=== PATIENT | female | born 1985 | race Caucasian/White ===

== ENCOUNTER 2017-06-14 01:59 | Emergency (ER) | payer SELFPAY ==
--- NOTE | 2017-06-14 02:22 | ER Document Report ---
ED General - General Chief Complaint: Flank Pain Stated Complaint: FLANK PAIN Time Seen by Provider: 06/14/17 02:16 Notes: Patient is a 31-year-old female with a past medical history of pyelonephritis, no chronic conditions, who presents with 1 week of dysuria and several hours of bilateral flank pain worse than the left. She states that for the past 1 week she has had intermittent dysuria which she was hoping would go away. She states that the symptoms have not resolved and tonight she woke up from sleep with severe bilateral flank pain that was described as a constant, stabbing, aching pain. Nothing improves or worsens the pain. She states this feels identical to when she had pyelonephritis in the past. She has not had any fever or constitutional symptoms. No vomiting or difficulty tolerating oral intake. She has not seen a primary care doctor regarding today's concerns. TRAVEL OUTSIDE OF THE [place] IN LAST 30 DAYS: No - Related Data Allergies/Adverse Reactions: amoxicillin Allergy (Verified 06/14/17 02:10) Penicillins Allergy (Verified 06/14/17 02:09) Past Medical History - General Information source: Patient - Social History Smoking Status: Current Some Day Smoker Frequency of alcohol use: Occasional Drug Abuse: None Lives with: Spouse/Significant other Family History: Reviewed & Not Pertinent Patient has suicidal ideation: No Patient has homicidal ideation: No Renal/ Medical History: Denies: Hx Peritoneal Dialysis Review of Systems - Review of Systems Notes: Constitutional: Negative for fever. HENT: Negative for sore throat. Eyes: Negative for visual changes. Cardiovascular: Negative for chest pain. Respiratory: Negative for shortness of breath. Gastrointestinal: Negative for abdominal pain, vomiting or diarrhea. Positive for bilateral flank pain Genitourinary: Positive for dysuria. Musculoskeletal: Negative for back pain. Skin: Negative for rash. Neurological: Negative for headaches, weakness or numbness. 10 point ROS negative except as marked above and in HPI. Physical Exam - Vital signs Vitals: Temp Pulse Resp BP Pulse Ox 97.8 F 92 20 132/91 H 99 06/14/17 02:05 06/14/17 02:05 06/14/17 02:05 06/14/17 02:05 06/14/17 02:05 Interpretation: Normal Notes: PHYSICAL EXAMINATION: GENERAL: Well-appearing, well-nourished and in no acute distress. HEAD: Atraumatic, normocephalic. EYES: Pupils equal round and reactive to light, extraocular movements intact, sclera anicteric, conjunctiva are normal. ENT: nares patent, oropharynx clear without exudates. Moderately dry mucous membranes. NECK: Normal range of motion, supple without lymphadenopathy LUNGS: Breath sounds clear to auscultation bilaterally and equal. No wheezes rales or rhonchi. HEART: Regular rate and rhythm without murmurs ABDOMEN: Soft, nontender, normoactive bowel sounds. No guarding, no rebound. No masses appreciated. Bilateral CVA tenderness slightly worse on the left versus the right. EXTREMITIES: Normal range of motion, no pitting or edema. No cyanosis. NEUROLOGICAL: No focal neurological deficits. Moves all extremities spontaneously and on command. PSYCH: Normal mood, normal affect. SKIN: Warm, Dry, normal turgor, no rashes or lesions noted. Course - Re-evaluation Re-evalutation: 06/14/17 03:18 Presentation is most consistent with acute pyelonephritis. Laboratories do demonstrate a large amount of white blood cells in the urine as well as bacteria. CVA tenderness is present on exam. I do not suspect an acute appendicitis, biliary pathology, pancreatitis, intra-abdominal abscess, or tubo- ovarian abscess based on history and examination. Although patient does have some blood in the urine this is also typical in the setting of pyelonephritis and she does not give a clinical history to suggest an acute nephrolithiasis. I do not believe any further imaging is indicated. Patient was given a dose of 1 g of ceftriaxone prior to discharge and is able to tolerate oral fluids without difficulty. Will be discharged home on 7 day course of cephalexin. A urine culture has been sent. At this time will discharge with return precautions and follow-up recommendations. Verbal discharge instructions given a the bedside and opportunity for questions given. Medication warnings reviewed. Patient is in agreement with this plan and has verbalized understanding of return precautions and the need for primary care follow-up in the next 24-72 hours. - Vital Signs Vital signs: Temp Pulse Resp BP Pulse Ox 97.8 F 92 20 132/91 H 99 06/14/17 02:05 06/14/17 02:05 06/14/17 02:05 06/14/17 02:05 06/14/17 02:05 - Laboratory Laboratory results interpreted by me: 06/14/17 02:45 Urine Protein >=500 H Urine Blood MODERATE H Urine Nitrite POSITIVE H Ur Leukocyte Esterase LARGE H Discharge - Discharge Clinical Impression: Pyelonephritis Condition: Good Disposition: HOME, SELF-CARE Additional Instructions: You have been diagnosed with a condition called pyelonephritis which is an infection involving your kidneys and bladder. You have been given a dose of antibiotics here in the emergency department to help begin to treat this infection. Your also being sent home on antibiotics. Please start taking these later on today when you fill the prescription. Complete the course even if you feel better. Please return if you have persistent vomiting, pass out, have worsening pain, become unable to tolerate fluids, or have any other symptoms that are concerning to you. Please follow-up with your primary care physician in the next 24-48 hours. Prescriptions: Cephalexin Monohydrate [Keflex 500 mg Capsule] 500 mg PO Q6H 7 Days capsule
[2017-06-14 03:10] LABS: APPEARANCE,URINE CLOUDY; BILIRUBIN,URINE NEGATIVE (NEGATIVE); GLUCOSE, URINE NEGATIVE (NEGATIVE); KETONES,URINE NEGATIVE (NEGATIVE); LEUKOCYTE ESTERASE,URINE LARGE (NEGATIVE); NITRITE,URINE POSITIVE (NEGATIVE); PROTEIN,URINE >=500 mg/dL (NEGATIVE); URINE SPECIFIC GRAVITY 1.013; UROBILINOGEN,URINE NEGATIVE mg/dL (<2.0)
[2017-06-14] MEDS ORDERED: LIDOCAINE 1% INJ-PF (10 MG/ML) 30 ML SDV INFIL ONE (03:18)
[2017-06-14] MEDS ORDERED: CEFTRIAXONE INJ 1000 MG VIAL IM ONE (03:18)
[2017-06-14] MEDS ORDERED: IBUPROFEN 600 MG TABLET PO ONE (03:21)
[2017-06-14] MEDS ORDERED: ACETAMINOPHEN 325 MG TABLET PO ONE (03:21)
[2017-06-14 04:06] VITALS: BP 119/79
== END 2017-06-14 04:00 | disposition home or self-care (01) ==
LOC: ER 01:59
DX: N12 Tubulo-interstitial nephritis, not specified as acute or chronic (principal); R10.9 Unspecified abdominal pain; F17.200 Nicotine dependence, unspecified, uncomplicated; Z88.0 Allergy status to penicillin
CPT/HCPCS: 99284; 87086; 81025; 87088; 81001; J3490; J0696; 87186

== ENCOUNTER 2017-10-06 12:47 | Emergency (ER) | payer SELFPAY ==
[2017-10-06] MEDS ORDERED: SULFAMETHOXAZOLE/TRIMETHOPRIM 800-160 MG TABLET PO ONE (15:00)
[2017-10-06] MEDS ORDERED: PHENAZOPYRIDINE HCL 100 MG TABLET PO ONE (15:00)
--- NOTE | 2017-10-06 15:02 | ER Document Report ---
HPI - HPI Patient complains to provider of: UTI Onset: Yesterday Onset/Duration: Gradual Quality of pain: Burning Pain Level: 2 Context: Patient presents complaining of urinary frequency with dysuria and nausea. Patient denies any fever or back pain. Patient complains of lower pelvic cramping. Patient denies any vaginal bleeding or discharge. Associated Symptoms: Nausea. denies: Fever, Vomiting Exacerbated by: Denies Relieved by: Denies Similar symptoms previously: Yes Recently seen / treated by doctor: No - ROS ROS below otherwise negative: Yes Systems Reviewed and Negative: Yes All other systems reviewed and negative - CONSTITUTIONAL Constitutional: DENIES: Fever - GASTROINTESTINAL Gastrointestinal: REPORTS: Abdominal Pain, Nausea. DENIES: Patient vomiting - URINARY Urinary: REPORTS: Dysuria, Urgency, Frequency - MUSCULOSKELETAL Musculoskeletal: DENIES: Back Pain - DERM Skin Color: Normal Skin Problems: None Past Medical History - General Information source: Patient - Social History Smoking Status: Never Smoker Chew tobacco use (# tins/day): No Frequency of alcohol use: Heavy Drug Abuse: None Occupation: Sales Lives with: Spouse/Significant other Family History: Reviewed & Not Pertinent Patient has suicidal ideation: No Patient has homicidal ideation: No - Medical History Medical History: Negative Renal/ Medical History: Denies: Hx Peritoneal Dialysis Past Surgical History: Reports: Hx Breast Surgery Vertical Provider Document - CONSTITUTIONAL Agree With Documented VS: Yes Exam Limitations: No Limitations General Appearance: WD/WN, No Apparent Distress - INFECTION CONTROL TRAVEL OUTSIDE OF THE [place] IN LAST 30 DAYS: No - HEENT HEENT: Atraumatic, Normocephalic - NECK Neck: Normal Inspection - RESPIRATORY Respiratory: Breath Sounds Normal, No Respiratory Distress O2 Sat by Pulse Oximetry: 99 - CARDIOVASCULAR Cardiovascular: Regular Rate, Regular Rhythm - GI/ABDOMEN Gastrointestinal: Abdomen Soft, Abdomen Tender - suprapubic, No Organomegaly, Normal Bowel Sounds - BACK Back: Normal Inspection. negative: CVA Tenderness-Right, CVA Tenderness-Left - MUSCULOSKELETAL/EXTREMETIES Musculoskeletal/Extremeties: YANG MARTINEZ - NEURO Level of Consciousness: Awake, Alert, Appropriate Motor/Sensory: No Motor Deficit - DERM Integumentary: Warm, Dry, No Rash Course - Vital Signs Vital signs: Temp Pulse Resp BP Pulse Ox 98.6 F 87 14 130/76 H 99 10/06/17 12:51 10/06/17 12:51 10/06/17 12:51 10/06/17 12:51 10/06/17 12:51 Discharge - Discharge Clinical Impression: UTI (urinary tract infection) Qualifiers: Urinary tract infection type: site unspecified Hematuria presence: without hematuria Qualified Code(s): N39.0 - Urinary tract infection, site not specified Condition: Stable Disposition: HOME, SELF-CARE Instructions: Trimethoprim-Sulfa ([facility]), Urinary Anesthetic Agent ([facility]), Urinary Tract Infection ([facility]) Additional Instructions: Return immediately for any new or worsening symptoms Followup with your primary care provider, call tomorrow to make a followup appointment Prescriptions: Phenazopyridine HCl [Pyridium 200 mg Tablet] 200 mg PO TID #15 tablet Sulfamethoxazole/Trimethoprim [Bactrim Ds Tablet] 1 each PO BID #14 tablet Referrals: [facility] [Provider Group] - Follow up as needed
[2017-10-06 15:38] VITALS: BP 123/73
== END 2017-10-06 15:38 | disposition home or self-care (01) ==
LOC: ER 12:47
DX: N39.0 Urinary tract infection, site not specified (principal)
CPT/HCPCS: 99283; 87086; 87088; 87186; J3490

== ENCOUNTER 2018-02-03 21:45 | Emergency (ER) | payer SELFPAY ==
--- NOTE | 2018-02-03 22:32 | ER Document Report ---
ED General - General Mode of Arrival: Ambulatory Information source: Patient TRAVEL OUTSIDE OF THE [place] IN LAST 30 DAYS: No <ARJUN YAÑEZ - Last Filed: 02/04/18 01:06> <ENOCH JONES - Last Filed: 02/04/18 01:35> - General Chief Complaint: Chest Pain Stated Complaint: CHEST PAIN Time Seen by Provider: 02/03/18 22:14 Notes: Patient is a 32 year old female with anxiety and asthma presents to the emergency department complaining of chest pain with associated symptoms of shortness of breath, and light headedness. Patient states she had chest pain yesterday with a cough and took her inhaler which relieved her symptoms. Patient states her chest pain gradually returned today and describes it has someone sitting on her chest. She states her inhaler has not helped with her symptoms today. Patient states she has never had similar symptoms. Patient denies a cardiac history. (ARJUN YAÑEZ) - Related Data Allergies/Adverse Reactions: amoxicillin Allergy (Verified 10/06/17 12:49) cefaclor [From Ceclor] Allergy (Verified 10/06/17 12:49) cephalexin [From Keflex] Allergy (Verified 10/06/17 12:49) latex Allergy (Verified 10/06/17 12:49) Penicillins Allergy (Verified 10/06/17 12:49) Past Medical History - General Information source: Patient - Social History Smoking Status: Former Smoker - States she occasionally vapes Chew tobacco use (# tins/day): No Frequency of alcohol use: Social Drug Abuse: None Family History: Reviewed & Not Pertinent Patient has suicidal ideation: No Patient has homicidal ideation: No Pulmonary Medical History: Reports: Hx Asthma - child Past Surgical History: Reports: Hx Breast Surgery <ARJUN YAÑEZ - Last Filed: 02/04/18 01:06> Review of Systems - Review of Systems Constitutional: No symptoms reported EENT: No symptoms reported Cardiovascular: See HPI, Chest pain, Lightheaded Respiratory: See HPI, Cough, Short of breath Gastrointestinal: No symptoms reported Genitourinary: No symptoms reported Female Genitourinary: No symptoms reported Musculoskeletal: No symptoms reported Skin: No symptoms reported Hematologic/Lymphatic: No symptoms reported Neurological/Psychological: No symptoms reported -: Yes All other systems reviewed and negative <ARJUN YAÑEZ - Last Filed: 02/04/18 01:06> Physical Exam - General General appearance: Alert, Anxious In distress: None - HEENT Head: Normocephalic, Atraumatic Eyes: Normal Conjunctiva: Normal Extraocular movements intact: Yes Pupils: PERRL Neck: Normal - Respiratory Respiratory status: No respiratory distress - Patient is 100% on room air at bedside. Chest status: Nontender Breath sounds: Normal Chest palpation: Normal - Cardiovascular Rhythm: Regular Heart sounds: Normal auscultation Murmur: No Friction rub: No Gallop: None auscultated - Abdominal Inspection: Normal Distension: No distension Tenderness: Nontender Organomegaly: No organomegaly - Back Back: Normal - Extremities General upper extremity: Normal ROM General lower extremity: Normal ROM - Neurological Neuro grossly intact: Yes Cognition: Normal Orientation: AAOx4 [place] Coma Scale Eye Opening: Spontaneous [place] Coma Scale Verbal: Oriented [place] Coma Scale Motor: Obeys Commands [place] Coma Scale Total: 15 Speech: Normal - Psychological Associated symptoms: Anxious - Skin Skin Temperature: Warm Skin Moisture: Dry Skin Color: Normal <ARJUN YAÑEZ - Last Filed: 02/04/18 01:06> - Vital signs Vitals: Temp Pulse Resp BP Pulse Ox 98.0 F 74 16 147/86 H 100 02/03/18 21:59 02/03/18 21:59 02/03/18 21:59 02/03/18 21:59 02/03/18 21:59 Course - Laboratory Result Diagrams: 02/03/18 22:37 02/03/18 22:37 <PARISHERINNHUNG - Last Filed: 02/04/18 01:06> - Laboratory Result Diagrams: 02/03/18 22:37 02/03/18 22:37 - Diagnostic Test Radiology reviewed: Image reviewed, Reports reviewed - Chest x-ray is unremarkable. - EKG Interpretation by Ma EKG shows normal: Sinus rhythm, [place], Intervals, QRS Complexes, ST-T Waves Rate: Normal - 84 Rhythm: NSR <ENOCH JONES - Last Filed: 02/04/18 01:35> - Re-evaluation Re-evalutation: 02/04/18 01:25 Room air pulse ox of 100%. The EKG is totally normal. Chest x-ray is totally normal. CBC, Chem-12, cardiac enzymes are completely normal. Patient does have a history of anxiety but is resistant to accepting that as an explanation for her symptoms of feeling like she cannot breathe. 02/04/18 01:31 All of the above findings are reviewed with the patient while her pulse is 85, her pulse ox is 100%. She continues to state that she feels like she is suffocating, cannot take a deep breath. Chest x-ray shows fully expanded lungs. She does not want to accept the fact that anxiety could be a big part of her sensation. She states her chest is burning when she breathes. She states she knows what anxiety feels like and she has not been anxious at all this week. She states she was given an inhaler for anxiety and it is not helping. I informed her that the inhalers for bronchospasm not for anxiety and that is why it is not helping because she does not have any bronchospasm. (ENOCH JONES) - Vital Signs Vital signs: Temp Pulse Resp BP Pulse Ox 98.0 F 74 18 130/80 H 100 02/03/18 21:59 02/03/18 21:59 02/04/18 01:03 02/04/18 01:03 02/04/18 01:03 Discharge <ARJUN YAÑEZ - Last Filed: 02/04/18 01:06> <ENOCH JONES - Last Filed: 02/04/18 01:35> - Discharge Clinical Impression: Anxiety Dyspnea Qualifiers: Dyspnea type: unspecified Qualified Code(s): R06.00 - Dyspnea, unspecified Chest pain Qualifiers: Chest pain type: unspecified Qualified Code(s): R07.9 - Chest pain, unspecified Condition: Stable Disposition: HOME, SELF-CARE Additional Instructions: Dyspnea, Nonspecific: You were evaluated for shortness of breath, or dyspnea. Dyspnea has many causes, and some are more serious than others. Sometimes it's impossible to diagnose the cause of dyspnea with the tests that are available on an emergency basis. Based on our evaluation today, you do not need hospitalization now. We found no evidence of pneumonia, collapsed lung, blood clots in the lung, tumors , or heart failure. Causes of non-specific dyspnea can include asthma or bronchospasm, hyperventilation, emotional distress, heart disease, emphysema, fibrosis of the lung, and stiffness of the chest wall. In healthy individuals with a single episode, it's sometimes reasonable to do nothing but wait to see if the problem occurs again. Additional tests used to evaluate dyspnea can include cardiac stress testing, echocardiography, pulmonary function testing, CAT scan of the chest, bronchoscopy or pulmonary biopsy. Return if shortness of breath persists or worsens, or if you develop chest pain, fever, cough, confusion, or fainting. Chest Pain of Unclear Cause: The exact cause of your chest pain isn't clear. Fortunately, there is no evidence of a dangerous medical condition. Further testing may be required to find the source of the pain. Most often, we find that this pain is coming from the chest wall -- the muscles or rib joints in the chest. But chest pain can come from the lung and lung lining, the esophagus, the heart valves or heart lining, and even the stomach or gallbladder. Rest. Eat lightly until the pain is gone. We may prescribe medicine for pain and inflammation. You should call the physician immediately if the pain radiates to the shoulder, jaw or arms; if you start to run a fever or develop a cough; or if you develop shortness of breath, or other new or alarming symptoms. No clear explanation was found for your symptoms of chest pressure, burning in your chest on breathing, and the sensation of not being able to get a good breath or suffocating. Chest x-ray showed fully inflating lungs with no abnormalities. Your oxygen saturation is 100% on room air. Your lab work was entirely normal as was the EKG. You are being discharged home with some pain medication to try tonight to help you rest and be able to sleep. If her symptoms persist, you should follow-up with a local primary care provider for further evaluation. RETURN TO THE EMERGENCY ROOM IF ANY NEW OR WORSENING SYMPTOMS. Scribe Attestation: 02/03/18 23:07 I personally performed the services described in the documentation, reviewed and edited the documentation which was dictated to the scribe in my presence, and it accurately records my words and actions. (ENOCH JONES) Scribe Documentation - Scribe Written by Chetan:: Chetan Martin, 02/03/2018 22:40 acting as scribe for :: Sharmin <ARJUN YAÑEZ - Last Filed: 02/04/18 01:06>
[2018-02-03 22:54] LABS: ABSOLUTE BASOPHILS # (AUTO) 0.1 10^3/uL (0.0-0.2); ABSOLUTE EOSINOPHILS # (AUTO) 0.3 10^3/uL (0.0-0.6); ABSOLUTE MONOCYTES (AUTO) 0.6 10^3/uL (0.1-1.4); ABSOLUTE NEUT (AUTO) 3.8 10^3/uL (1.7-8.2); BASOPHILS % (AUTO) 1.3 % (0-2); EOSINOPHILS % (AUTO) 3.6 % (0-6); HEMATOCRIT 36.2 % (36.0-47.0); HEMOGLOBIN 12.6 g/dL (12.0-15.5); LYMPHOCYTES % (AUTO) 38.3 % (13-45); MEAN CORPUSCULAR HEMOGLOBIN 33.1 pg (27.0-33.4); MEAN CORPUSCULAR HGB CONC 34.8 g/dL (32.0-36.0); MEAN CORPUSCULAR VOLUME 95 fl (80-97); MONOCYTES % (AUTO) 8.1 % (3-13); PLATELET COUNT 288 10^3/uL (150-450); RED BLOOD COUNT 3.81 10^6/uL (3.72-5.28); RED CELL DISTRIBUTION WIDTH 12.8 % (11.5-14.0); SEGMENTED NEUTROPHILS % (AUTO) 48.7 % (42-78); TOTAL CELLS COUNTED % (AUTO) 100 %; WHITE BLOOD COUNT 7.8 10^3/uL (4.0-10.5)
--- NOTE | 2018-02-03 22:54 | EKG REPORT ---
SEVERITY:- NORMAL ECG - SINUS RHYTHM : Confirmed by: Neelima Jones 03-Feb-2018 22:53:37
[2018-02-03 23:10] LABS: ALANINE AMINOTRANSFERASE 25 U/L (9-52); ALBUMIN 4.5 g/dL (3.5-5.0); ALKALINE PHOSPHATASE 88 U/L (38-126); ANION GAP 13 (5-19); ASPARTATE AMINO TRANSFERASE 20 U/L (14-36); BILIRUBIN,DIRECT 0.3 mg/dL (0.0-0.4); BILIRUBIN,TOTAL 0.4 mg/dL (0.2-1.3); BLOOD UREA NITROGEN 11 mg/dL (7-20); CALCIUM 10.1 mg/dL (8.4-10.2); CARBON DIOXIDE 25 mmol/L (22-30); CHLORIDE 104 mmol/L (98-107); CREATINE KINASE 64 U/L (30-135); GLUCOSE 85 mg/dL (75-110); POTASSIUM 3.8 mmol/L (3.6-5.0); SODIUM 141.5 mmol/L (137-145); TOTAL PROTEIN 7.1 g/dL (6.3-8.2)
[2018-02-04 01:09] VITALS: BP 130/80
--- NOTE | 2018-02-04 01:10 | RADIOLOGY REPORT (SQ) ---
EXAM DESCRIPTION: XR CHEST 2 VIEWS COMPLETED DATE/TME: 02/04/2018 00:11 CLINICAL HISTORY: 32 years Female, Chest pain COMPARISON: None. FINDINGS: Adequate lung volume, clear parenchyma, normal cardiac silhouette, mammary prostheses, and intact bony thorax. IMPRESSION: No acute cardiopulmonary findings.
[2018-02-04] MEDS ORDERED: HYDROCODONE/ACETAMINOPHEN 5-325 MG (6 TAB/ER DISP) PO PRN (01:35)
== END 2018-02-04 01:53 | disposition home or self-care (01) ==
LOC: ER 21:45
DX: F41.9 Anxiety disorder, unspecified (principal); R06.00 Dyspnea, unspecified; R07.9 Chest pain, unspecified; R42 Dizziness and giddiness; R05 Cough; Z87.891 Personal history of nicotine dependence; J45.909 Unspecified asthma, uncomplicated
CPT/HCPCS: 36415; 71046; 80053; 82550; 84484; 85025; 93005; 93010; 99285

== ENCOUNTER 2019-01-15 04:50 | Emergency (ER) | payer BC ==
--- NOTE | 2019-01-15 05:25 | RADIOLOGY REPORT (SQ) ---
EXAM: X-ray two views two or more views CLINICAL DATA: 33-year-old female who tripped and fell on a rock and complains of right toe pain TECHNICAL DATA: Two x-ray views of the right toes were performed on 01/15/2019 at 5:12 AM. COMPARISONS: None FINDINGS: There is a mildly displaced oblique fracture through the distal third of the proximal phalanx of the fourth digit of the right foot. No definite additional fractures are identified. There is no evidence of arthritis or significant degenerative change. Bone mineralization is normal. There is mild soft tissue swelling surrounding the fourth digit of the right foot. IMPRESSION: Mildly displaced oblique fracture through the distal third of the proximal phalanx of the fourth digit of the right foot. Intra-articular extension is not confirmed on this study.
[2019-01-15] MEDS ORDERED: IBUPROFEN 600 MG TABLET PO ONE (08:27)
[2019-01-15] MEDS ORDERED: HYDROCODONE/ACETAMINOPHEN 5-325 MG (6 TAB/ER DISP) PO PRN (09:01)
--- NOTE | 2019-01-15 09:04 | ER Document Report ---
HPI - HPI Patient complains to provider of: R foot pain Time Seen by Provider: 01/15/19 08:24 Pain Level: 3 Context: Healthy 33-year-old female presents to the emergency department chief complaint of left foot pain after slipping and falling yesterday evening. She states that she was unable to bear weight on it but did not think it was necessary to seek treatment. In the middle the night she developed acute pain which woke her up and she could not tolerate the pain anymore prompting her to seek treatment in the emergency department. She denies fevers, chills, nausea, vomiting, knee pain or hip pain, discoloration of the foot, swelling of the foot, or any other concerning symptoms. - EENT EENT: DENIES: Sore Throat, Ear Pain, Eye problems - NEURO Neurology: DENIES: Headache, Weakness, Vision blurred, Dizzinesss / Vertigo - CARDIOVASCULAR Cardiovascular: DENIES: Chest pain - RESPIRATORY Respiratory: DENIES: Trouble Breathing, Coughing - GASTROINTESTINAL Gastrointestinal: DENIES: Abdominal Pain, Black / Bloody Stools - URINARY Urinary: DENIES: Dysuria, Urgency, Frequency - REPRODUCTIVE Reproductive: DENIES: :, Postmenopausal, Abnormal bleeding / discharge - MUSCULOSKELETAL Musculoskeletal: REPORTS: Extremity pain - Toes Past Medical History - Social History Smoking Status: Unknown if Ever Smoked Family History: Reviewed & Not Pertinent Patient has suicidal ideation: No Patient has homicidal ideation: No Pulmonary Medical History: Reports: Hx Asthma - child Renal/ Medical History: Denies: Hx Peritoneal Dialysis Past Surgical History: Reports: Hx Breast Surgery Vertical Provider Document - CONSTITUTIONAL Notes: PHYSICAL EXAMINATION: Reviewed vital signs and charting by RN GENERAL: Alert, interacts well. No acute distress. HEAD: Normocephalic, atraumatic. EYES: Pupils equal, round, and reactive to light. Extraocular movements intact. ENT: Oral mucosa moist, tongue midline. NECK: Full range of motion. Supple. Trachea midline. LUNGS: Clear to auscultation bilaterally, no wheezes, rales, or rhonchi. No resp iratory distress. HEART: Regular rate and rhythm. No murmur ABDOMEN: soft, non-tender. No distention. Bowel sounds present EXTREMITIES: Moves all 4 extremities spontaneously. No edema, No cyanosis. Acute tenderness to palpation of the right fourth toe. PSYCH: Normal affect, normal mood. SKIN: Warm, dry, normal turgor. No rashes or lesions noted. - INFECTION CONTROL TRAVEL OUTSIDE OF THE [place] IN LAST 30 DAYS: No Course - Re-evaluation Re-evalutation: 01/15/19 15:15 X-ray shows evidence of a mildly displaced oblique fracture of the fourth phalanx of the right foot. Plan is to milton tape and placed in a postop shoe. Patient is stable for discharge. - Vital Signs Vital signs: Temp Pulse Resp BP Pulse Ox 98.1 F 90 16 118/88 H 99 01/15/19 04:55 01/15/19 04:55 01/15/19 04:55 01/15/19 04:55 01/15/19 04:55 Discharge - Discharge Clinical Impression: Phalanx fracture, foot Qualifiers: Encounter type: initial encounter Toe: lesser toe Fracture type: closed Phalanx: proximal Fracture alignment: nondisplaced Laterality: right Qualified Code(s): S92.514A - Nondisplaced fracture of proximal phalanx of right lesser toe(s), initial encounter for closed fracture Condition: Good Disposition: HOME, SELF-CARE Additional Instructions: You are seen emergency department this morning for a broken toe. It was mildly displaced but not enough that we will require orthopedic intervention. We have provided you with a postop shoe and milton tape and given you crutches. You can take Motrin 600 mg every 6 hours and/or Tylenol 1000 mg every 6 hours for pain control. Given you a very short course of pain medication he can take for better while you are sleeping. It should heal without any issues on its own. If you continue to have severe pain over the next 1 to 2 weeks please follow-up for reevaluation. If your toes starts to turn purple or black please return to the emergency department for reevaluation.
[2019-01-15 10:17] VITALS: BP 123/80
== END 2019-01-15 09:10 | disposition home or self-care (01) ==
LOC: ER 04:50
DX: S92.514A Nondisplaced fracture of proximal phalanx of right lesser toe(s), initial encounter for closed fracture (principal); W01.0XXA Fall on same level from slipping, tripping and stumbling without subsequent striking against object, initial encounter
CPT/HCPCS: 99283

== ENCOUNTER 2019-05-05 20:03 | Emergency (ER) | payer BC ==
--- NOTE | 2019-05-05 20:35 | ER Document Report ---
ED Medical Screen (RME) - General Chief Complaint: Fever Stated Complaint: FEVER Time Seen by Provider: 05/05/19 20:24 Mode of Arrival: Ambulatory Information source: Patient Notes: This 33-year-old female presents emergency department with complaints of fevers all month. Reports her temperature goes up to 104.5. She takes Tylenol Motrin and the temperature comes down. She reports fever for the past month. She was evaluated at urgent care her strep test was negative. She was treated with a Z- Scar still had the fevers treated with clindamycin for 10 days. She reports fever went away for approximately 1 week and then returned. Last fever was approximately 4 hours ago. Complains of swollen lymph nodes on the right side of her neck which are worse. Denies rash. 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 Reports her throat feels fine now she is swallowing without problems. Complains of very tender right-sided neck pain. I have greeted and performed a rapid initial assessment of this patient. A comprehensive ED assessment and evaluation of the patient, analysis of test results and completion of the medical decision making process will be conducted by additional ED providers. Dictation of this chart was performed using voice recognition software; therefore, there may be some unintended grammatical errors. TRAVEL OUTSIDE OF THE [place] IN LAST 30 DAYS: No - Related Data Allergies/Adverse Reactions: amoxicillin Allergy (Verified 10/06/17 12:49) cefaclor [From Ceclor] Allergy (Verified 10/06/17 12:49) cephalexin [From Keflex] Allergy (Verified 10/06/17 12:49) latex Allergy (Verified 10/06/17 12:49) Penicillins Allergy (Verified 10/06/17 12:49) Past Medical History Pulmonary Medical History: Reports: Hx Asthma - child Renal/ Medical History: Denies: Hx Peritoneal Dialysis Past Surgical History: Reports: Hx Breast Surgery Physical Exam - Vital signs Vitals: Temp Pulse Resp BP Pulse Ox 99.5 F 117 H 17 113/68 95 05/05/19 20:10 05/05/19 20:10 05/05/19 20:10 05/05/19 20:10 05/05/19 20:10 Course - Vital Signs Vital signs: Temp Pulse Resp BP Pulse Ox 99.5 F 117 H 17 113/68 95 05/05/19 20:10 05/05/19 20:10 05/05/19 20:10 05/05/19 20:10 05/05/19 20:10
[2019-05-05 20:59] LABS: ABSOLUTE LYMPHOCYTES (AUTO) 1.5 10^3/uL (0.5-4.7); ABSOLUTE MONOCYTES (AUTO) 0.7 10^3/uL (0.1-1.4); BASOPHILS % (AUTO) 0.2 % (0-2); EOSINOPHILS % (AUTO) 0.2 % (0-6); HEMATOCRIT 35.4 % (36.0-47.0); MEAN CORPUSCULAR HEMOGLOBIN 30.7 pg (27.0-33.4); MEAN CORPUSCULAR HGB CONC 33.8 g/dL (32.0-36.0); MEAN CORPUSCULAR VOLUME 91 fl (80-97); MONOCYTES % (AUTO) 4.9 % (3-13); PLATELET COUNT 281 10^3/uL (150-450); RED CELL DISTRIBUTION WIDTH 14.9 % (11.5-14.0); SEGMENTED NEUTROPHILS % (AUTO) 84.7 % (42-78); TOTAL CELLS COUNTED % (AUTO) 100 %; WHITE BLOOD COUNT 15.4 10^3/uL (4.0-10.5)
[2019-05-05 21:01] LABS: APPEARANCE,URINE SLIGHTLY-CLOUDY; BILIRUBIN,URINE NEGATIVE (NEGATIVE); COLOR,URINE YELLOW; GLUCOSE, URINE NEGATIVE (NEGATIVE); KETONES,URINE NEGATIVE (NEGATIVE); LEUKOCYTE ESTERASE,URINE SMALL (NEGATIVE); NITRITE,URINE NEGATIVE (NEGATIVE); PROTEIN,URINE 100 mg/dL (NEGATIVE); URINE SPECIFIC GRAVITY 1.026; UROBILINOGEN,URINE NEGATIVE mg/dL (<2.0)
[2019-05-05 21:09] LABS: ALBUMIN 4.1 g/dL (3.5-5.0); ALKALINE PHOSPHATASE 124 U/L (38-126); ANION GAP 11 (5-19); ASPARTATE AMINO TRANSFERASE 17 U/L (14-36); BILIRUBIN,DIRECT 0.2 mg/dL (0.0-0.4); BILIRUBIN,TOTAL 0.4 mg/dL (0.2-1.3); BLOOD UREA NITROGEN 10 mg/dL (7-20); CALCIUM 9.5 mg/dL (8.4-10.2); CARBON DIOXIDE 23 mmol/L (22-30); CHLORIDE 103 mmol/L (98-107); GLUCOSE 121 mg/dL (75-110); POTASSIUM 3.5 mmol/L (3.6-5.0); TOTAL PROTEIN 7.3 g/dL (6.3-8.2)
--- NOTE | 2019-05-05 23:10 | RADIOLOGY REPORT (SQ) ---
EXAM DESCRIPTION: CT NECK WITH IV CONTRAST COMPLETED DATE/TME: 05/05/2019 20:31 CLINICAL HISTORY: 33 years, Female, swollen lymph node pain fever COMPARISON: None. TECHNIQUE: Contrast enhanced CT of the neck was performed. Coronal and sagittal reformations were created. Images stored on PACS. All CT scanners at this facility use dose modulation, iterative reconstruction, and/or weight based dosing when appropriate to reduce radiation dose to as low as reasonably achievable (ALARA). [facility]: Dose Right [facility]: CareDose [facility]: Dose Right [facility]: Teradose 4D [facility]: [employer] LIMITATIONS: None. FINDINGS: Limited evaluation of the lung apices reveals no suspicious abnormality. Thyroid gland enhances symmetrically. The hypopharynx and nasopharynx show no suspicious abnormality. Assessment of the oropharynx reveals diffuse heterogenous enlargement of the bilateral palatine tonsils. No focal fluid collections are identified about either [place] tonsil however. Limited evaluation of the brain parenchyma reveals no suspicious findings. Visualized intracranial arterial vasculature appears opacify with contrast normally. Major dural venous sinuses also appear to opacify with contrast normally. Globes and orbits show no acute abnormality. Paranasal sinuses and mastoid air cells are clear. The nasal septum is deviated towards the left with a rightward nasal spur. The bilateral parotid and submandibular glands appear normal. Vascular structures of the neck appear to enhance normally. Interval enlarged bilateral level IIa and IIb lymph nodes are evident. For example, there is an enlarged right level IIa lymph node on image 53 of series 2 measuring 1.7 x 1.4 cm in size. Similar finding is noted just anterior to this larger lymph node measuring 1.5 x 1.8 cm in size on the same image. In addition, there is an enlarged left level IIa/IIb lymph node conglomeration on image 54 of series 2 measuring approximately 4.4 x 1.5 cm in size. There is also an enlarged left level IV lymph node on image 86 of series 2 measuring 1.6 x 1.1 cm in size. An additional enlarged right level III lymph node is evident on image 73 of series 2 measuring 1.1 x 1.3 cm in size. Cervical vertebral body heights and alignments appear overall well-maintained. Intervertebral spaces are also well maintained. IMPRESSION: Enlarged/heterogeneously enhancing bilateral palatine tonsils with superimposed deep cervical lymphadenopathy. Overall, these findings could indicate tonsillitis with associated reactive lymphadenopathy. However, the degree of conglomerate lymphadenopathy about the left level IIa/IIb regions is concerning. As such, an underlying malignancy/lymphoma needs to be excluded. TECHNICAL DOCUMENTATION: Quality ID # 436: Final reports with documentation of one or more dose reduction techniques (e.g., Automated exposure control, adjustment of the mA and/or kV according to patient size, use of iterative reconstruction technique) copyright 2011 [employer]- All Rights Reserved
[2019-05-06] MEDS ORDERED: ACETAMINOPHEN 325 MG TABLET PO ONE (00:20)
[2019-05-06] MEDS ORDERED: NORMAL SALINE 1000 ML 1,000 ML IV ONE (00:38)
--- NOTE | 2019-05-06 02:27 | ER Document Report ---
ED Fever - General Chief Complaint: Fever Stated Complaint: FEVER Time Seen by Provider: 05/05/19 20:24 Mode of Arrival: Ambulatory Notes: RME NOTE: This 33-year-old female presents emergency department with complaints of fevers all month. Reports her temperature goes up to 104.5. She takes Tylenol Motrin and the temperature comes down. She reports fever for the past month. She was evaluated at urgent care her strep test was negative. She was treated with a Z- Scar still had the fevers treated with clindamycin for 10 days. She reports fever went away for approximately 1 week and then returned. Last fever was approximately 4 hours ago. Complains of swollen lymph nodes on the right side of her neck which are worse. Denies rash. 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 Reports her throat feels fine now she is swallowing without problems. Complains of very tender right-sided neck pain. MY HPI: Patient does relate that she has had an intermittent fever for the last month. States last string of fevers had lasted for the last 4 days, to include today. Patient is denying URI symptoms, denies sore throat, denies dysuria, denies chest pain, abdominal pain, vaginal discharge. Patient's complaining of generalized swelling to the right side of her neck. Patient has full range of motion of neck, no nuchal rigidity noted. Patient does voice she has had swelling of her neck intermittently for the last month. States when she was placed on clindamycin for suspected strep infection the swelling "completely went away." Patient's denying any rashes, denies being outside for extended periods. Patient voices that she typically goes from her house straight to work. Patient is denying any headaches or general malaise. Patient's only complaining of her cervical lymphadenopathy. Patient's denying any joint or muscle pains. TRAVEL OUTSIDE OF THE [place] IN LAST 30 DAYS: No - Related Data Allergies/Adverse Reactions: amoxicillin Allergy (Verified 10/06/17 12:49) cefaclor [From Ceclor] Allergy (Verified 10/06/17 12:49) cephalexin [From Keflex] Allergy (Verified 10/06/17 12:49) latex Allergy (Verified 10/06/17 12:49) Penicillins Allergy (Verified 10/06/17 12:49) Past Medical History - General Information source: Patient - Social History Smoking Status: Never Smoker Family History: Reviewed & Not Pertinent Patient has suicidal ideation: No Patient has homicidal ideation: No Pulmonary Medical History: Reports: Hx Asthma - child Renal/ Medical History: Denies: Hx Peritoneal Dialysis Past Surgical History: Reports: Hx Breast Surgery Review of Systems - Review of Systems Constitutional: Fever EENT: See HPI Cardiovascular: No symptoms reported Respiratory: No symptoms reported Gastrointestinal: No symptoms reported Genitourinary: No symptoms reported Female Genitourinary: No symptoms reported Musculoskeletal: See HPI Skin: No symptoms reported Hematologic/Lymphatic: No symptoms reported Neurological/Psychological: No symptoms reported Physical Exam - Vital signs Vitals: Temp Pulse Resp BP Pulse Ox 99.5 F 117 H 17 113/68 95 05/05/19 20:10 05/05/19 20:10 05/05/19 20:10 05/05/19 20:10 05/05/19 20:10 - Notes Notes: GENERAL: Alert, interacts well. No acute distress. HEAD: Normocephalic, atraumatic. EYES: Pupils equal, round, and reactive to light. Extraocular movements intact. ENT: Oral mucosa moist, tongue midline. Nares patent, TM's intact, nonerythematous, nonbulging bilaterally. Pharynx within normal limits no palatal petechiae noted NECK: Full range of motion. Supple. Trachea midline. No nuchal rigidity noted. Anterior cervical lymphadenopathy noted bilaterally LUNGS: Clear to auscultation bilaterally, no wheezes, rales, or rhonchi. No respiratory distress. HEART: Regular rate and rhythm. No murmur ABDOMEN: Soft, non-tender. Non-distended. Bowel sounds present in all 4 quadr ants. EXTREMITIES: Moves all 4 extremities spontaneously. No edema, normal radial and dorsalis pedis pulses bilaterally. No cyanosis. BACK: no cervical, thoracic, lumbar midline tenderness. No saddle anesthesia, normal distal neurovascular exam. NEUROLOGICAL: Alert and oriented x3. Normal speech. cranial nerves II through XII grossly intact. PSYCH: Normal affect, normal mood. SKIN: Warm, dry, normal turgor. No rashes or lesions noted. Course - Re-evaluation Re-evalutation: 05/06/19 02:25 Laboratory 05/05/19 05/05/19 05/05/19 20:45 20:45 20:45 WBC 15.4 H RBC 3.90 Hgb 12.0 Hct 35.4 L MCV 91 MCH 30.7 MCHC 33.8 RDW 14.9 H Plt Count 281 Lymph % (Auto) 10.0 L [place] % (Auto) 4.9 Eos % (Auto) 0.2 Baso % (Auto) 0.2 Absolute Neuts (auto) 13.0 H Absolute Lymphs (auto) 1.5 Absolute Monos (auto) 0.7 Absolute Eos (auto) 0.0 Absolute Basos (auto) 0.0 Seg Neutrophils % 84.7 H Sodium 136.8 L Potassium 3.5 L Chloride 103 Carbon Dioxide 23 Anion Gap 11 BUN 10 Creatinine 0.70 Est GFR ( Amer) > 60 Est GFR (MDRD) Non-Af > 60 Glucose 121 H Calcium 9.5 Total Bilirubin 0.4 Direct Bilirubin 0.2 Neonat Total Bilirubin Not Reportable Neonat Direct Bilirubin Not Reportable Neonat Indirect Bili Not Reportable AST 17 ALT 12 Alkaline Phosphatase 124 Total Protein 7.3 Albumin 4.1 Urine Color YELLOW Urine Appearance SLIGHTLY-CLOUDY Urine pH 5.0 Ur Specific [place] 1.026 Urine Protein 100 H Urine Glucose (UA) NEGATIVE Urine Ketones NEGATIVE Urine Blood NEGATIVE Urine Nitrite NEGATIVE Urine Bilirubin NEGATIVE Urine Urobilinogen NEGATIVE Ur Leukocyte Esterase SMALL H Urine WBC (Auto) 10 Urine RBC (Auto) 5 U Hyaline Cast (Auto) 4 Urine Bacteria (Auto) TRACE Squamous Epi Cells Auto 2 Urine Mucus (Auto) FEW Urine Ascorbic Acid 40 H Urine HCG, Qual NEGATIVE Monotest Group A Strep Rapid 05/05/19 05/05/19 20:45 20:45 WBC RBC Hgb Hct MCV MCH MCHC RDW Plt Count Lymph % (Auto) [place] % (Auto) Eos % (Auto) Baso % (Auto) Absolute Neuts (auto) Absolute Lymphs (auto) Absolute Monos (auto) Absolute Eos (auto) Absolute Basos (auto) Seg Neutrophils % Sodium Potassium Chloride Carbon Dioxide Anion Gap BUN Creatinine Est GFR ( Amer) Est GFR (MDRD) Non-Af Glucose Calcium Total Bilirubin Direct Bilirubin Neonat Total Bilirubin Neonat Direct Bilirubin Neonat Indirect Bili AST ALT Alkaline Phosphatase Total Protein Albumin Urine Color Urine Appearance Urine pH Ur Specific [place] Urine Protein Urine Glucose (UA) Urine Ketones Urine Blood Urine Nitrite Urine Bilirubin Urine Urobilinogen Ur Leukocyte Esterase Urine WBC (Auto) Urine RBC (Auto) U Hyaline Cast (Auto) Urine Bacteria (Auto) Squamous Epi Cells Auto Urine Mucus (Auto) Urine Ascorbic Acid Urine HCG, Qual Monotest NEGATIVE Group A Strep Rapid NEGATIVE Soft Tissue Neck CT 05/05/19 20:31 IMPRESSION: Enlarged/heterogeneously enhancing bilateral palatine tonsils with superimposed deep cervical lymphadenopathy. Overall, these findings could indicate tonsillitis with associated reactive lymphadenopathy. However, the degree of conglomerate lymphadenopathy about the left level IIa/IIb regions is concerning. As such, an underlying malignancy/lymphoma needs to be excluded. TECHNICAL DOCUMENTATION: Quality ID # 436: Final reports with documentation of one or more dose reduction techniques (e.g., Automated exposure control, adjustment of the mA and/or kV according to patient size, use of iterative reconstruction technique) copyright 2011 [employer]- All Rights Reserved I discussed with patient at length her CT imaging results. I have discussed following up with oncology, phone numbers provided in the emergency department. I discussed prophylactic treatment for [place] spotted fever. Patient v oices she does not want prophylactic treatment as she goes straight from inside straight to work. Patient voices she does not typically outside for any extended period of time. [place] spotted fever testing pending. Patient did have a fever in the emergency department, treated with antipyretics, fever responded. Steroids administered to decrease patient's lymphadenopathy. Blood cultures ordered. Patient is refusing influenza testing at this time. She states "I do not care if it is the flu at this point." Discussed with patient again close follow-up with a primary care provider, phone numbers provided as well as oncology, phone numbers provided. Patient voices understanding. Stable for discharge. - Vital Signs Vital signs: Temp Pulse Resp BP Pulse Ox 101.7 F H 117 H 17 113/68 95 05/06/19 00:17 05/05/19 20:10 05/05/19 20:10 05/05/19 20:10 05/05/19 20:10 - Laboratory Result Diagrams: 05/05/19 20:45 05/05/19 20:45 Laboratory results interpreted by me: 05/05/19 05/05/19 05/05/19 20:45 20:45 20:45 WBC 15.4 H Hct 35.4 L RDW 14.9 H Lymph % (Auto) 10.0 L Absolute Neuts (auto) 13.0 H Seg Neutrophils % 84.7 H Sodium 136.8 L Potassium 3.5 L Glucose 121 H Urine Protein 100 H Ur Leukocyte Esterase SMALL H Urine Ascorbic Acid 40 H Discharge - Discharge Clinical Impression: Lymphadenopathy of right cervical region Fever Qualifiers: Fever type: unspecified Qualified Code(s): R50.9 - Fever, unspecified Condition: Stable Disposition: HOME, SELF-CARE Instructions: Fever ([facility]), Lymphadenopathy ([facility]) Additional Instructions: As we discussed at length you have been seen and treated in the emergency department for your fever and lymphadenopathy. It is my suggestion you follow- up with a primary care provider and oncologist. Phone numbers for both will be provided in this packet. Please also continue to take Tylenol or Motrin for generalized fevers as well as staying well-hydrated. Please return to the emergency room for any further concerns. Forms: Return to Work Referrals: PRAKASH JACOBSON MD [ACTIVE STAFF] - Follow up as needed DEBBI GONZALEZ MD [COMMUNITY BASED STAFF] - Follow up as needed
[2019-05-06] MEDS ORDERED: DEXAMETHASONE 4 MG TABLET PO ONE (02:30)
[2019-05-06 03:03] VITALS: BP 128/74
== END 2019-05-06 03:02 | disposition home or self-care (01) ==
LOC: ER 20:03
DX: R59.0 Localized enlarged lymph nodes (principal); R50.9 Fever, unspecified; M54.2 Cervicalgia; R22.1 Localized swelling, mass and lump, neck; J45.909 Unspecified asthma, uncomplicated
CPT/HCPCS: 36415; 87040; 87070; 87086; 87880; 85025; 81025; 87088; 86308; 80053; 81001; 86757 ×2; 70491; J7030; 87186; 96360; 99284

== ENCOUNTER → 2019-06-13 | Outpatient (CLI) | payer BC ==
--- NOTE | 2019-06-13 13:32 | RADIOLOGY REPORT (SQ) ---
EXAM DESCRIPTION: CT CHEST WITH COMPLETED DATE/TIME: 06/13/2019 1:11 pm REASON FOR STUDY: R59.9 ENLARGED LYMPH NODES, UNSPECIFIED R59.9 ENLARGED LYMPH NODES, UNSPECIFIED COMPARISON: None. TECHNIQUE: CT scan of the chest performed using helical scanning technique with dynamic intravenous contrast injection. Images reviewed with lung, soft tissue and bone windows. Reconstructed coronal and sagittal MPR and MIP images reviewed. All images stored on PACS. All CT scanners at this facility use dose modulation, iterative reconstruction, and/or weight based d osing when appropriate to reduce radiation dose to as low as reasonably achievable (ALARA). [facility]: Dose Right [facility]: CareDose [facility]: Dose Right [facility]: Teradose 4D [facility]: [employer] CONTRAST TYPE AND DOSE: 67 mL Omnipaque 350- low osmolar. RENAL FUNCTION: None required. The patient is less than 50 years old. RADIATION DOSE: CT Rad equipment meets quality standard of care and radiation dose reduction techniq ues were employed. CTDIvol: 4.5 - 4.6 mGy. DLP: 844 mGy-cm. . LIMITATIONS: None. FINDINGS: LUNGS AND PLEURA: No opacities, nodules, masses. No pneumothorax. No effusions. HILAR AND MEDIASTINAL STRUCTURES: No identified masses or abnormal nodes. HEART AND VASCULAR STRUCTURES: No aneurysm or dissection. No central pulmonary emboli. No pericardi al effusion. HARDWARE: None in the chest. UPPER ABDOMEN: No significant findings. Limited exam. THYROID AND OTHER SOFT TISSUES: No masses. No adenopathy. BONES: No significant finding. OTHER: No axillary adenopathy. IMPRESSION: NORMAL CT OF THE CHEST WITH IV CONTRAST. TECHNICAL DOCUMENTATION: JOB ID: [id number] Quality ID # 436: Final reports with documentation of one or more dose reduction techniques (e.g., Au tomated exposure control, adjustment of the mA and/or kV according to patient size, use of iterative reconstruction technique) 2010 [employer]- All Rights Reserved Reading location - IP/workstation name: [email or web address]
--- NOTE | 2019-06-13 13:43 | RADIOLOGY REPORT (SQ) ---
EXAM DESCRIPTION: CT ABD/PELVIS WITH IV ORAL COMPLETED DATE/TIME: 06/13/2019 1:11 pm REASON FOR STUDY: R59.9 ENLARGED LYMPH NODES, UNSPECIFIED R59.9 ENLARGED LYMPH NODES, UNSPECIFIED COMPARISON: None. TECHNIQUE: CT scan of the abdomen and pelvis performed using helical scanning technique with dynamic intravenous contrast injection. Oral contrast. Images reviewed with lung, soft tissue, and bone win dows. Reconstructed coronal and sagittal MPR images reviewed. Delayed images for evaluation of the ur inary system also acquired. All images stored on PACS. All CT scanners at this facility use dose modulation, iterative reconstruction, and/or weight based d osing when appropriate to reduce radiation dose to as low as reasonably achievable (ALARA). [facility]: Dose Right [facility]: CareDose [facility]: Dose Right [facility]: Teradose 4D [facility]: [employer] CONTRAST TYPE AND DOSE: contrast/concentration: Isovue 350.00 mg/ml; Total Contrast Delivered: 67.0 ml; Total Saline Delivered: 65.0 ml RENAL FUNCTION: Creatinine 0.6 RADIATION DOSE: . LIMITATIONS: None. FINDINGS: LOWER CHEST: See separate report of the CT of the chest. LIVER: Normal size. No masses. No dilated ducts. SPLEEN: Normal size. No focal lesions. PANCREAS: No masses. No significant calcifications. No adjacent inflammation or peripancreatic fluid collections. Pancreatic duct not dilated. GALLBLADDER: Contracted. No gallstones. ADRENAL GLANDS: No significant masses or asymmetry. RIGHT KIDNEY AND URETER: No solid masses. No significant calcifications. No hydronephrosis or hyd roureter. LEFT KIDNEY AND URETER: No solid masses. No significant calcifications. No hydronephrosis or hydr oureter. AORTA AND VESSELS: No aneurysm. No dissection. Renal arteries, SMA, celiac without stenosis. RETROPERITONEUM: The IVC is on the left up to the level of the left renal vein where the IVC crosses over to the right. No retroperitoneal adenopathy is seen. BOWEL AND PERITONEAL CAVITY: No masses or inflammatory changes. No free fluid or peritoneal masses. APPENDIX: Not identified. PELVIS: No mass. No free fluid. Normal bladder. ABDOMINAL WALL: No masses. No hernias. BONES: No significant or acute findings. OTHER: No other significant finding. 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 No acute findings in the abdomen or pelvis. No adenopathy is identified. TECHNICAL DOCUMENTATION: JOB ID: [id number] Quality ID # 436: Final reports with documentation of one or more dose reduction techniques (e.g., Au tomated exposure control, adjustment of the mA and/or kV according to patient size, use of iterative reconstruction technique) 2010 [employer]- All Rights Reserved Reading location - IP/workstation name: [email or web address]
== END ==
LOC: RAD 12:35
PROVIDERS: ATTEND Internal Medicine Hematology & Oncology
DX: R59.9 Enlarged lymph nodes, unspecified (principal)
CPT/HCPCS: 71260; 74177

== ENCOUNTER 2020-08-12 08:41 | Emergency (ER) | payer BC ==
[2020-08-12 10:18] LABS: ABSOLUTE BASOPHILS # (AUTO) 0.1 10^3/uL (0.0-0.2); ABSOLUTE EOSINOPHILS # (AUTO) 0.3 10^3/uL (0.0-0.6); ABSOLUTE LYMPHOCYTES (AUTO) 1.9 10^3/uL (0.5-4.7); ABSOLUTE MONOCYTES (AUTO) 0.5 10^3/uL (0.1-1.4); ABSOLUTE NEUT (AUTO) 5.6 10^3/uL (1.7-8.2); BASOPHILS % (AUTO) 1.2 % (0-2); EOSINOPHILS % (AUTO) 3.3 % (0-6); HEMATOCRIT 38.7 % (36.0-47.0); HEMOGLOBIN 13.7 g/dL (12.0-15.5); LYMPHOCYTES % (AUTO) 22.6 % (13-45); MEAN CORPUSCULAR HEMOGLOBIN 33.2 pg (27.0-33.4); MEAN CORPUSCULAR HGB CONC 35.5 g/dL (32.0-36.0); MEAN CORPUSCULAR VOLUME 93 fl (80-97); MONOCYTES % (AUTO) 5.6 % (3-13); PLATELET COUNT 299 10^3/uL (150-450); RED BLOOD COUNT 4.14 10^6/uL (3.72-5.28); RED CELL DISTRIBUTION WIDTH 13.1 % (11.5-14.0); SEGMENTED NEUTROPHILS % (AUTO) 67.3 % (42-78); TOTAL CELLS COUNTED % (AUTO) 100 %; WHITE BLOOD COUNT 8.3 10^3/uL (4.0-10.5)
[2020-08-12 10:28] LABS: APPEARANCE,URINE SLIGHTLY-CLOUDY; BILIRUBIN,URINE NEGATIVE (NEGATIVE); COLOR,URINE YELLOW; GLUCOSE, URINE NEGATIVE (NEGATIVE); KETONES,URINE TRACE mg/dL (NEGATIVE); LEUKOCYTE ESTERASE,URINE NEGATIVE (NEGATIVE); NITRITE,URINE NEGATIVE (NEGATIVE); PROTEIN,URINE NEGATIVE (NEGATIVE); URINE SPECIFIC GRAVITY 1.019
[2020-08-12 10:36] LABS: ALBUMIN 5.1 g/dL (3.5-5.0); ALKALINE PHOSPHATASE 102 U/L (38-126); ANION GAP 10 (5-19); ASPARTATE AMINO TRANSFERASE 24 U/L (14-36); BILIRUBIN,DIRECT 0.3 mg/dL (0.0-0.4); BILIRUBIN,TOTAL 0.7 mg/dL (0.2-1.3); BLOOD UREA NITROGEN 12 mg/dL (7-20); CALCIUM 10.1 mg/dL (8.4-10.2); CARBON DIOXIDE 27 mmol/L (22-30); CHLORIDE 102 mmol/L (98-107); POTASSIUM 4.3 mmol/L (3.6-5.0)
[2020-08-12 10:45] LABS: GLUCOSE 69 mg/dL (75-110)
--- NOTE | 2020-08-12 12:30 | RADIOLOGY REPORT (SQ) ---
EXAM DESCRIPTION: U/S NON OB PEL TV W/DOPPLER IMAGES COMPLETED DATE/TIME: 08/12/2020 12:19 pm REASON FOR STUDY: left sided lower quad/pelvic pain/vag discharge COMPARISON: None. TECHNIQUE: Dynamic and static grayscale images acquired of the pelvis via transvaginal approach and recorded on PACS. Additional selected color Doppler and spectral images recorded. LIMITATIONS: None. FINDINGS: UTERUS: Contour normal. No mass. ENDOMETRIAL STRIPE: No focal or generalized thickening. No masses. CERVIX: 2.7 cm. No nabothian cysts. RIGHT OVARY AND DOPPLER: Normal size. No worrisome masses. Normal arterial vascular flow without evid ence for torsion. LEFT OVARY AND DOPPLER: Normal size. 18 mm dominant follicle. No worrisome masses. Normal arterial vascular flow without evidence for torsion. FREE FLUID: None noted. OTHER: No other significant finding. MEASUREMENTS: UTERUS: 8.6 x 4.5 x 4.9 cm. ENDOMETRIAL STRIPE: 8 mm. RIGHT OVARY: 2 x 1.5 x 1.2 cm. LEFT OVARY: 2.1 x 2.1 x 2.5 cm. IMPRESSION: NORMAL TRANSVAGINAL PELVIC ULTRASOUND. TECHNICAL DOCUMENTATION: JOB ID: [id number] 2010 [employer]- All Rights Reserved Rev Reading location - IP/workstation name: [email or web address]
--- NOTE | 2020-08-12 12:30 | RADIOLOGY REPORT (SQ) ---
EXAM DESCRIPTION: U/S RETROPERITON (RENAL/AORTA) IMAGES COMPLETED DATE/TIME: 08/12/2020 12:19 pm REASON FOR STUDY: left flank pain COMPARISON: None. TECHNIQUE: Dynamic and static grayscale images acquired of the kidneys and bladder and recorded on P ACS. Additional selected color Doppler and spectral images recorded. LIMITATIONS: None. FINDINGS: RIGHT KIDNEY: Normal size measuring 10.0 cm. Normal echogenicity. No solid or suspicious m asses. No hydronephrosis. No calcifications. LEFT KIDNEY: Normal size measuring 11.5 cm. Small echogenic focus measuring 6 mm. Normal echogenic ity. No solid or suspicious masses. No hydronephrosis. BLADDER: No masses. OTHER FINDINGS: No other significant finding. IMPRESSION: 1. No hydronephrosis. 2. Scatter small echogenic foci, largest within the left kidney measuring 6 mm, likely nonobstructin g stone. TECHNICAL DOCUMENTATION: JOB ID: [id number] 2010 [employer]- All Rights Reserved Reading location - IP/workstation name: [email or web address]
--- NOTE | 2020-08-12 12:48 | RADIOLOGY REPORT (SQ) ---
EXAM DESCRIPTION: CT ABD/PELVIS NO ORAL OR IV IMAGES COMPLETED DATE/TIME: 08/12/2020 12:33 pm REASON FOR STUDY: left flank pain COMPARISON: 06/13/2019. TECHNIQUE: CT scan of the abdomen and pelvis performed without intravenous or oral contrast. Images reviewed with lung, soft tissue, and bone windows. Reconstructed coronal and sagittal MPR images revi ewed. All images stored on PACS. All CT scanners at this facility use dose modulation, iterative reconstruction, and/or weight based d osing when appropriate to reduce radiation dose to as low as reasonably achievable (ALARA). [facility]: Dose Right [facility]: CareDose [facility]: Dose Right [facility]: Teradose 4D [facility]: [employer] RADIATION DOSE: mGy. LIMITATIONS: None. FINDINGS: LOWER CHEST: No significant findings. No nodules or infiltrates. NON-CONTRASTED LIVER, SPLEEN, ADRENALS: Evaluation limited by lack of IV contrast. No identified sign ificant masses. PANCREAS: No masses. No peripancreatic inflammatory changes. GALLBLADDER: No identified stones by CT criteria. No inflammatory changes to suggest cholecystitis. RIGHT KIDNEY AND URETER: No suspicious masses. Assessment limited by lack of IV contrast. Tiny punc scott lower pole calyceal calculus. No hydronephrosis or hydroureter. LEFT KIDNEY AND URETER: No suspicious masses. Assessment limited by lack of IV contrast. No signifi cant calcifications. No hydronephrosis or hydroureter. AORTA AND RETROPERITONEUM: No aneurysm. No retroperitoneal masses or adenopathy. BOWEL AND PERITONEAL CAVITY: No obvious masses or inflammatory changes. No free fluid. APPENDIX: Normal. PELVIS, BLADDER, AND ABDOMINAL WALL:No abnormal masses. No free fluid. Bladder normal. BONES: No significant findings. OTHER: No other significant finding. IMPRESSION: TINY NONOBSTRUCTING LOWER POLE CALYCEAL CALCULUS IN THE RIGHT KIDNEY. NO OTHER SIGNIFIC ANT OR ACUTE PROCESS IN THE ABDOMEN OR PELVIS. COMMENT: Quality ID # [id number]: Final reports with documentation of one or more dose reduction techniques (e.g., Automated exposure control, adjustment of the mA and/or kV according to patient size, use of iterative reconstruction technique) TECHNICAL DOCUMENTATION: JOB ID: [id number] 2010 [employer]- All Rights Reserved Reading location - IP/workstation name: [email or web address]
[2020-08-12 14:12] VITALS: BP 112/67
--- NOTE | 2020-08-12 14:24 | ER Document Report ---
Entered by JASMIN ROUSE SCRIBE 08/12/20 1107 Acting as scribe for:STACEY GARCIA MD ED General - General Chief Complaint: Flank Pain Stated Complaint: SIDE PAIN Time Seen by Provider: 08/12/20 10:36 Primary Care Provider: PRAKASH JACOBSON MD [ACTIVE STAFF] - Follow up as needed Information source: Patient Notes: This 35 year old female patient presents to the emergency department today with complaints of constant bilateral flank pain L>R for the past x1 week. Patient states the flank pain is not reproducible when palpated, and it radiates to her lower abdomen. Patient reports recent symptoms of a UTI and finished her antibiotic Macrobit x2 days ago without relief. Patient reports history of frequent UTIs and no history of kidney stones. Patient reports N/V, dark urine, slight cloudiness, and mild burning with urination. Denies trouble with bowel movement, abnormal discharge, fever, chills, or odor to her urine. Per nurse, patient is sexually active and her partner has a vasectomy. TRAVEL OUTSIDE OF THE [place] IN LAST 30 DAYS: No - Related Data Allergies/Adverse Reactions: amoxicillin Allergy (Verified 10/06/17 12:49) cefaclor [From Ceclor] Allergy (Verified 10/06/17 12:49) cephalexin [From Keflex] Allergy (Verified 10/06/17 12:49) latex Allergy (Verified 10/06/17 12:49) Penicillins Allergy (Verified 10/06/17 12:49) Past Medical History - General Information source: Patient - Social History Smoking Status: Unknown if Ever Smoked Lives with: Family Family History: Reviewed & Not Pertinent Patient has homicidal ideation: No Pulmonary Medical History: Reports: Hx Asthma - child Renal/ Medical History: Denies: Hx Kidney Stones Past Surgical History: Reports: Hx Breast Surgery Review of Systems - Review of Systems Constitutional: See HPI, Recent illness. denies: Chills, Fever EENT: No symptoms reported Cardiovascular: No symptoms reported Respiratory: No symptoms reported Gastrointestinal: See HPI, Abdominal pain - lower abdomen, Nausea, Vomiting, Last bowel movement - normal Genitourinary: See HPI, Burning - mild, Flank pain - L>R, Other - dark urine. denies: Discharge Female Genitourinary: See HPI Musculoskeletal: No symptoms reported Skin: No symptoms reported Hematologic/Lymphatic: No symptoms reported Neurological/Psychological: No symptoms reported -: Yes All other systems reviewed and negative Physical Exam - Vital signs Vitals: Temp Pulse Resp BP Pulse Ox 98.1 F 94 16 121/82 98 08/12/20 08:49 08/12/20 08:49 08/12/20 08:49 08/12/20 08:49 08/12/20 08:49 - General Notes: Alert. Appears non-toxic. - HEENT Head: Normocephalic, Atraumatic Eyes: Normal Pupils: PERRL - Respiratory Respiratory status: No respiratory distress Chest status: Nontender Breath sounds: Normal Chest palpation: Normal - Cardiovascular Rhythm: Regular Heart sounds: Normal auscultation Murmur: No - Abdominal Inspection: Normal, Other - Soft Distension: No distension Bowel sounds: Normal Notes: Mild tenderness with palpation to the LLQ. No rebound. - Extremities General upper extremity: Normal inspection, Normal ROM General lower extremity: Normal inspection, Normal ROM. No: Edema - Neurological Neuro grossly intact: Yes Cognition: Normal Orientation: AAOx4 Henderson Coma Scale Eye Opening: Spontaneous Henderson Coma Scale Verbal: Oriented Betty Coma Scale Motor: Obeys Commands Betty Coma Scale Total: 15 Speech: Normal Motor strength normal: LUE, RUE, LLE, RLE Sensory: Normal - Psychological Associated symptoms: Normal affect, Normal mood - Skin Skin Temperature: Warm Skin Moisture: Dry Skin Color: Normal Course - Re-evaluation Re-evalutation: 08/12/20 14:14 Patient resting comfortably at this time. - Vital Signs Vital signs: Temp Pulse Resp BP Pulse Ox 98.1 F 94 19 112/67 99 08/12/20 08:49 08/12/20 08:49 08/12/20 14:01 08/12/20 14:00 08/12/20 14:01 08/12/20 14:14 Vital signs stable - Laboratory Results Result Diagrams: 08/12/20 09:35 08/12/20 09:35 Laboratory Results Interpreted: 08/12/20 08/12/20 09:35 09:35 Glucose 69 L Albumin 5.1 H Urine Ketones TRACE H Urine Urobilinogen 2.0 H 08/12/20 14:14 Laboratories unremarkable for any critical laboratory value. Critical Laboratory Results Reviewed: No Critical Results - Radiology Results Radiology Results Interpreted: 08/12/20 14:15 Abdomen/Pelvis CT 08/12/20 11:31 IMPRESSION: TINY NONOBSTRUCTING LOWER POLE CALYCEAL CALCULUS IN THE RIGHT KIDNEY. NO OTHER SIGNIFICANT OR ACUTE PROCESS IN THE ABDOMEN OR PELVIS. Transvaginal US 08/12/20 11:32 IMPRESSION: NORMAL TRANSVAGINAL PELVIC ULTRASOUND. Renal Ultrasound 08/12/20 11:33 IMPRESSION: 1. No hydronephrosis. 2. Scatter small echogenic foci, largest within the left kidney measuring 6 mm, likely nonobstructing stone. CT abdomen and pelvis shows tiny nonobstructing lower pole calyceal calculus in the right kidney no other significant or acute process. Transvaginal ultrasound normal transvaginal pelvic ultrasound with no abnormalities noted. Renal ultrasound no hydronephrosis scattered small echogenic foci light largest within the left kidney measuring 6 mm likely nonobstructing stone. Critical Radiology Results Reviewed: No Critical Results Discharge - Discharge Clinical Impression: Kidney stones Condition: Good Disposition: HOME, SELF-CARE Additional Instructions: Kidney Stone You are passing or have passed a kidney stone. These stones are usually due to increased calcium or uric acid concentrations in your urine. Stones within the kidney itself are not painful. The pain occurs as the stone leaves the kidney to pass down the long tube, called the ureter, leading to the bladder. If the stone is small, it will usually pass by itself. Most patients can pass the stone at home. You will usually receive medications for pain, nausea or vomiting, and sometimes a medication to assist in passing the kidney stone. However, if the pain is very severe or if vomiting prevents you from taking oral pain medications, you may need to return for further treatment. Drink three or four quarts of fluids per day. You will be given pain medication (if needed) and urine strainers. Strain all your urine to see if the stone passes. If your doctor has asked you to bring the stone in for analysis, return with the stone once it has passed. Return if pain or vomiting become severe, if you develop a high fever, if you are unable to pass your urine, or if other unusual symptoms occur. Prescriptions: Tamsulosin HCl [Flomax 0.4 mg Cap.sr] 0.4 mg PO DAILY #7 cap.sr.24h Ibuprofen [Ibu] 600 mg PO TID PRN #21 tablet PRN Reason: Pain Scale Of 3 Hydrocodone/Acetaminophen [Cassatt 10-325 mg Tablet] 1 tab PO TID PRN #10 tablet PRN Reason: prn severe pain Ondansetron [Zofran Odt 4 mg Tablet] 1 - 2 tab PO Q4H PRN #15 tab.rapdis PRN Reason: For Nausea/Vomiting Referrals: PRAKASH JACOBSON MD [ACTIVE STAFF] - Follow up as needed SUSAN RAND MD [NO LOCAL MD] - Follow up as needed I personally performed the services described in the documentation, reviewed and edited the documentation which was dictated to the scribe in my presence, and it accurately records my words and actions.
== END 2020-08-12 14:48 | disposition home or self-care (01) ==
LOC: ER 08:41
DX: N20.0 Calculus of kidney (principal); R10.30 Lower abdominal pain, unspecified; R11.2 Nausea with vomiting, unspecified; Z87.440 Personal history of urinary (tract) infections
CPT/HCPCS: 36415; 74176; 76770; 76830; 80053; 81001; 81025; 85025; 93976; 99285